=== PATIENT | male | born 1950 | race Caucasian/White ===

== ENCOUNTER 2020-02-17 14:56 | Emergency (ER) | payer OTHER, MEDICARE, SELFPAY ==
[2020-02-17 15:15] VITALS: BP 169/90; PULSE 92; RESP 18; TEMP 36.3; O2SAT 98
[2020-02-17 15:26] VITALS: BP 190/114; PULSE 92; RESP 18; TEMP 36.3; O2SAT 98
--- NOTE | 2020-02-17 15:35 | ED.WOUNDLAC ---
HPI - Wound/Laceration General Chief Complaint: Wound/Laceration Stated Complaint: Left hand finger laceration Time Seen by Provider: 02/17/20 15:35 Source: patient and RN notes reviewed Mode of arrival: ambulatory Limitations: no limitations History of Present Illness HPI narrative: 69-year-old male who presents to [facility] care with complaints of laceration to the left ring finger dorsal DIP aspect along lateral aspect approximately 20 minutes prior to arrival while using a table with moderate amount of bleeding noted on arrival. Patient states that his tetanus is UTD from about 2 years ago. Patient has full mobility of his left ring finger, strong radial pulses to left wrist, nail bed blanches briskly to left ring finger, no complaints of tingling or numbness to his left ring finger or hand. Extremity Location: Left: hand (Left distal ring finger) Place: home Patient tetanus UTD: Yes Context: accidental Associated symptoms: pain Treatments prior to arrival: bandage Related Data Home Medications Medication Instructions Recorded Confirmed lisinopril 20 mg PO DAILY 02/17/20 02/17/20 Allergies Allergy/AdvReac Type Severity Reaction Status Date / Time codeine Allergy Unknown Nausea Verified 02/17/20 15:13 pseudoephedrine Allergy Unknown Unknown Verified 02/17/20 15:13 triprolidine Allergy Unknown Rash Verified 02/17/20 15:13 Review of Systems Review of Systems: Narrative: CONSTITUTIONAL: Denies fever, chills, or sweats. EYES: Denies visual changes, redness, or discharge. ENT: Denies rhinorrhea, congestion, sore throat, or otalgia. CARDIOVASCULAR: Denies chest pain, palpitations, or edema. RESPIRATORY: Denies cough or dyspnea. GASTROINTESTINAL: Denies abdominal pain, nausea, vomiting, or diarrhea. GENITOURINARY: Denies dysuria or hematuria. SKIN: Denies rash or itching. positive for laceration to the left dorsal aspect of left ring finger at lateral DIP area with bleeding moderate upon arrival but slowed after a few minutes. MUSCULOSKELETAL: Denies back pain, joint pain, or myalgia. NEUROLOGIC: Denies headache, numbness, or weakness. PSYCHIATRIC: Denies anxiety or depression. All systems reviewed & are unremarkable except as noted in HPI and below PMFSH Past Medical History Medical History (Updated 02/17/20 @ 16:15 by Shama Moreno NP) Arthritis GERD (gastroesophageal reflux disease) Hypertension Surgical History Surgical History (Updated 02/17/20 @ 16:14 by Shama Moreno NP) History of tonsillectomy Family History Family History Sibling Family history of liver disease Father Family history of emphysema Other Hypertension Social History Social History (Updated 02/17/20 @ 16:14 by Shama Moreno NP) Smoking packs per day: 1 Smoking cigarettes per day: 20.0 Years smoked: 40 Smoking pack-years: 40.00 Smoking status: Current every day smoker Tobacco type: cigarettes Alcohol intake: current Substance use: never Living arrangements: with family Occupation/Education: retired Gender identity (if verbalized by the patient): Male Comments At time of signature, agree with nursing past medical, surgical, social and family history. There is no relevant family history pertinent to the presenting complaint Exam Narrative: Exam Narrative: GENERAL: Well-appearing, well-nourished, and in no acute distress. HEAD: Normocephalic, atraumatic. EYES: PERRLA and EOMI. ENT: Nares clear, no rhinorrhea or epistaxis. Mucous membranes moist. NECK: Supple.no lymphadenopathy CHEST: Clear to auscultation. No respiratory distress.SAO2 98% on room air HEART: Regular rate and rhythm. No murmur heard. Normal peripheral pulses. ABDOMEN: Soft, nontender, nondistended, normal active bowel sounds. EXTREMITIES: Normal range of motion. No edema. SKIN: Warm, dry, no rash.2cm laceration to dorsal aspect of left ring finger at DIP area lateral aspect,
== END 2020-02-17 16:22 | disposition home or self-care (01) ==
PROVIDERS: Emergency Provider Registered Nurse; PCP Family Medicine Adolescent Medicine
DX: S61.215A Laceration without foreign body of left ring finger without damage to nail, initial encounter (principal); W27.0XXA Contact with workbench tool, initial encounter; M19.90 Unspecified osteoarthritis, unspecified site; K21.9 Gastro-esophageal reflux disease without esophagitis; I10 Essential (primary) hypertension; F17.210 Nicotine dependence, cigarettes, uncomplicated
CPT/HCPCS: 12001; 99213; G0463

== ENCOUNTER 2021-02-16 11:37 | Outpatient (CLI) | payer OTHER, SELFPAY ==
[2021-02-16 12:19] LABS: Alanine Aminotransferase 29 U/L (4-50); Albumin Level 4.2 g/dL (3.5-5.1); Alkaline Phosphatase 77 U/L (38-126); Anion Gap 4 mmol/L (8-16); Aspartate Amino Transferase 24 U/L (17-59); Bilirubin,Total 0.3 mg/dL (0.2-1.3); Blood Urea Nitrogen 17 mg/dL (9-20); Calcium 9.1 mg/dL (8.4-10.2); Carbon Dioxide 31 mmol/L (22-30); Chloride 100 mmol/L (98-107); Estimated Glomerular Filt Rate > 60; Glucose 142 mg/dL (65-110); Potassium 4.2 mmol/L (3.4-5.0); Sodium 135 mmol/L (137-145)
[2021-02-16 12:48] LABS: Prostate Specific Antigen 4.6 ng/mL (< OR = 4.0)
== END 2021-02-16 11:38 | disposition home or self-care (01) ==
LOC: ANHLAB 11:43
PROVIDERS: PCP Family Medicine Adolescent Medicine; Visit Provider Family Medicine Adolescent Medicine
DX: Z12.5 Encounter for screening for malignant neoplasm of prostate (principal); I10 Essential (primary) hypertension
CPT/HCPCS: 36415; 80053; 84153; G0103

== ENCOUNTER 2021-02-17 11:17 | Outpatient (CLI) | payer OTHER, SELFPAY ==
[2021-02-17 12:44] LABS: Prostate Specific Antigen 4.3 ng/mL (< OR = 4.0)
[2021-02-22 21:07] LABS: PSA, Total 4.2 ng/mL (<=4.0); Percent Free Prostate Spec Ag 17 % (>25)
== END 2021-02-17 11:18 | disposition home or self-care (01) ==
LOC: ANHLAB 11:25
PROVIDERS: PCP Family Medicine Adolescent Medicine; Visit Provider Family Medicine Adolescent Medicine
DX: R97.20 Elevated prostate specific antigen [PSA] (principal); Z12.5 Encounter for screening for malignant neoplasm of prostate
CPT/HCPCS: 36415; 84153; 84154; G0103

== ENCOUNTER → 2021-03-18 03:19 | Outpatient (CLI) | payer OTHER, SELFPAY ==
[2021-03-18 22:12] LABS: SARS-CoV-2 RNA PCR Negative
== END ==
PROVIDERS: PCP Family Medicine Adolescent Medicine; Visit Provider Internal Medicine Gastroenterology
DX: Z01.812 Encounter for preprocedural laboratory examination (principal); Z20.822 Contact with and (suspected) exposure to COVID-19
CPT/HCPCS: C9803; U0003; U0005

== ENCOUNTER 2021-03-21 02:50 | Day surgery (SDC) | payer OTHER, SELFPAY ==
[2021-03-15 11:18] VITALS: BMI 28.8
--- NOTE | 2021-03-21 08:27 | WPDANESEPPF ---
Anes - Initial Pre Proc Eval Procedure: Operation Date: 03/21/21 10:30 Proposed Procedures p Screening Colonoscopy - Shaheen Laird MD Date/Time: 03/21/21 08:27 Surgeon: Shaheen Laird MD Pre Op Diagnosis: hx of colon polyps Patient Data Age: 70 Gender: M Height: 1.78 m Weight: 91 kg Allergies Allergy/AdvReac Type Severity Reaction Status Date / Time pseudoephedrine Allergy Intermediate Rash Verified 03/21/21 09:18 triprolidine Allergy Unknown Rash Verified 03/21/21 09:18 codeine AdvReac Intermediate Nausea Verified 03/21/21 09:18 Home Medications Medication Instructions Recorded Confirmed Type lisinopril 20 mg PO DAILY 02/17/20 03/15/21 History Adults Multivitamin 1 tab-cap PO DAILY 03/15/21 03/15/21 History xvezvnxnctz-bzl-kvvunssfy-vitC 2 cap PO DAILY 03/15/21 03/15/21 History [Glucosamine Complex-MSM] Patient hx anesthesia problems: none Family hx anesthesia problems: none Results Review: All pre-operative results and documents have been reviewed as part of the pre-operative evaluation. [facility] Past Medical History Medical History (Updated 02/18/20 @ 00:00 by Shadi Serrano) Arthritis GERD (gastroesophageal reflux disease) Hypertension Surgical History Surgical History (Updated 02/17/20 @ 16:14 by Shama Moreno NP) History of tonsillectomy Family History Family History Sibling Family history of liver disease Father Family history of emphysema Other Hypertension Social History Social History (Updated 02/17/20 @ 16:14 by Shama Moreno NP) Smoking packs per day: 0.5 Smoking cigarettes per day: 10.0 Years smoked: 50 Smoking pack-years: 25.00 Smoking status: Current every day smoker Tobacco type: cigarettes Alcohol intake: current Drinks per week: 7 Alcohol use details: BEERS- OCC. WHISKEY Substance use: never Substance use type: does not use Living arrangements: with family Gender identity (if verbalized by the patient): Male Spiritual care concerns: No Anes - Eval Final PreProcedure Day of Procedure 03/21/21 08:27 Patient weight: overweight Heart: regular rate and rhythm Lungs: clear to auscultation and normal air movement Airway: Mallampati scale class II and special considerations poor dentition Neurological: alert and oriented Last oral intake: >/= 8 hours ASA classification: III Emergent: no Anesthetic plan: proceed Anesthesia type and monitoring: general GIVS and standard monitoring Results Review: All pre-operative results and documents have been reviewed as part of the pre-operative evaluation. Informed Consent: The patient's anesthetic plan and its attendant risks and benefits were discussed with the patient/family/POA. Questions were solicited and answers provided to the satisfaction of the patient/family/POA.
[2021-03-21 09:19] VITALS: BP 152/77; PULSE 63; RESP 17; TEMP 35.9; O2SAT 98; BMI 27.5
--- NOTE | 2021-03-21 09:27 | WPDGICN ---
Assessment and Plan Assessment and plan (1) History of colon polyps: Code(s): Z86.010 - Personal history of colonic polyps Status: Acute Assessment and Plan: Patient has a history of colon polyps. They were adenomatous 2010. Plan is for surveillance colonoscopy at present time. GI Consult Note Consult date/time: 03/21/21 09:27 HPI: Ken Puga is a 70 year old male Presents for screening colonoscopy. Patient's current weight appetite bowel movements are normal. He denies abdominal pain. He has had no bleeding. Patient's last colonoscopy 10 years ago revealed an adenomatous colon polyp. Patient presents today for neoplasia screening. Review of Systems Review of Systems: All systems reviewed & are unremarkable except as noted in HPI and below PMFSH Past Medical History Medical History (Updated 03/21/21 @ 09:28 by Shaheen Laird MD) Arthritis GERD (gastroesophageal reflux disease) Hypertension Surgical History Surgical History (Updated 02/17/20 @ 16:14 by Shama Moreno NP) History of tonsillectomy Family History Family History Sibling Family history of liver disease Father Family history of emphysema Other Hypertension Social History Social History (Updated 02/17/20 @ 16:14 by Shama Moreno NP) Smoking packs per day: 0.5 Smoking cigarettes per day: 10.0 Years smoked: 50 Smoking pack-years: 25.00 Smoking status: Current every day smoker Tobacco type: cigarettes Alcohol intake: current Drinks per week: 7 Alcohol use details: BEERS- OCC. WHISKEY Substance use: never Substance use type: does not use Living arrangements: with family Gender identity (if verbalized by the patient): Male Spiritual care concerns: No Meds Home Medications and Allergies Home Medications Medication Instructions Recorded Confirmed Type lisinopril 20 mg PO DAILY 02/17/20 03/21/21 History Adults Multivitamin 1 tab-cap PO DAILY 03/15/21 03/21/21 History zeqxsjkcqeh-bmr-gmfnsuizz-vitC 2 cap PO DAILY 03/15/21 03/21/21 History [Glucosamine Complex-MSM] Allergies Allergy/AdvReac Type Severity Reaction Status Date / Time pseudoephedrine Allergy Intermediate Rash Verified 03/21/21 09:18 triprolidine Allergy Unknown Rash Verified 03/21/21 09:18 codeine AdvReac Intermediate Nausea Verified 03/21/21 09:18 Vital Signs Vital Signs - 24 hr 03/21/21 09:19 Temperature 96.6 F L Pulse Rate 63 Respiratory Rate 17 Blood Pressure 152/77 H Pulse Oximetry 98 Exam Narrative: Physical exam reveals patient to be alert. Vital signs stable. HEENT exam is unremarkable. Patient is anicteric. Lungs are clear to auscultation and percussion. Heart is without murmur or extra sounds. Abdominal exam bowel sounds are present soft nontender with no hepatosplenomegaly. Digital external rectal exam is normal.
[2021-03-21] MEDS: LACTATED RINGERS 1,000 ML 150 ML IV CONT (09:35)
[2021-03-21 10:23] VITALS: BP 100/53; PULSE 59; RESP 10; O2SAT 99
[2021-03-21 10:33] VITALS: BP 118/67; PULSE 58; RESP 22; O2SAT 100
[2021-03-21 10:43] VITALS: BP 122/73; PULSE 58; RESP 25; O2SAT 100
== END 2021-03-21 11:04 | disposition home or self-care (01) ==
PROVIDERS: PCP Family Medicine Adolescent Medicine; Visit Provider Internal Medicine Gastroenterology
PROC: 0DJD8ZZ Inspection of Lower Intestinal Tract, Via Natural or Artificial Opening Endoscopic (ICD-10-PCS; CPT 45378; principal; 2021-03-21 10:30)
DX: Z12.11 Encounter for screening for malignant neoplasm of colon (principal); D12.5 Benign neoplasm of sigmoid colon; D12.3 Benign neoplasm of transverse colon; D12.2 Benign neoplasm of ascending colon; K64.8 Other hemorrhoids; K57.30 Diverticulosis of large intestine without perforation or abscess without bleeding; I10 Essential (primary) hypertension; K21.9 Gastro-esophageal reflux disease without esophagitis; F17.210 Nicotine dependence, cigarettes, uncomplicated
CPT/HCPCS: 45385; 88305; C9803; J2704; J7120; U0003; U0005

== ENCOUNTER 2021-08-29 14:32 | Outpatient (CLI) | payer OTHER, SELFPAY ==
[2021-08-31 19:39] LABS: PSA, Free 0.71 ng/mL; PSA, Total 4.1 ng/mL (<=4.0); Percent Free Prostate Spec Ag 17 % (>25)
== END 2021-08-29 14:33 | disposition home or self-care (01) ==
LOC: ANHLAB 14:34
PROVIDERS: PCP Family Medicine Adolescent Medicine; Visit Provider Family Medicine Adolescent Medicine
DX: R97.20 Elevated prostate specific antigen [PSA] (principal)
CPT/HCPCS: 36415; 84153; 84154

== ENCOUNTER 2022-02-20 07:40 | Outpatient (CLI) | payer OTHER, SELFPAY ==
[2022-02-20 09:19] LABS: Alanine Aminotransferase 28 U/L (6-50); Albumin Level 4.1 g/dL (3.5-5.1); Alkaline Phosphatase 78 U/L (38-126); Anion Gap 7 mmol/L (8-16); Aspartate Amino Transferase 25 U/L (17-59); Bilirubin,Total 0.5 mg/dL (0.2-1.3); Blood Urea Nitrogen 14 mg/dL (9-20); Calcium 8.8 mg/dL (8.4-10.2); Carbon Dioxide 29 mmol/L (22-30); Chloride 104 mmol/L (98-107); Cholesterol 235 mg/dL (0-200); Creatine Kinase 43 U/L (55-170); Estimated Glomerular Filt Rate > 60; Glucose 122 mg/dL (65-110); HDL Direct 34 mg/dL; Potassium 4.4 mmol/L (3.4-5.0); Sodium 140 mmol/L (137-145); Triglycerides 225 mg/dL (<150)
[2022-02-20 09:30] LABS: LDL Cholesterol Direct 139 mg/dL
[2022-02-20 09:47] LABS: Prostate Specific Antigen 4.4 ng/mL (< OR = 4.0)
[2022-02-20 11:01] LABS: Erythrocyte Sedimentation Rate 20 mm/hr (0-20)
== END 2022-02-20 07:41 | disposition home or self-care (01) ==
LOC: ANHLAB 07:42
PROVIDERS: PCP Family Medicine Adolescent Medicine; Visit Provider Family Medicine Adolescent Medicine
DX: E78.2 Mixed hyperlipidemia (principal); I10 Essential (primary) hypertension; R97.20 Elevated prostate specific antigen [PSA]; M79.10 Myalgia, unspecified site
CPT/HCPCS: 36415; 80053; 80061; 82550; 84153; 85652

== ENCOUNTER 2022-04-20 01:34 | Day surgery (SDC) | payer OTHER, SELFPAY ==
[2022-04-10 15:49] VITALS: BMI 28.8
[2022-04-20 07:48] VITALS: BP 132/74; PULSE 64; RESP 17; TEMP 36.1; O2SAT 98
[2022-04-20] MEDS: LACTATED RINGERS 1,000 ML 150 ML IV CONT (07:54)
--- NOTE | 2022-04-20 08:03 | WPDANESEPPF ---
Anes - Initial Pre Proc Eval Procedure: Operation Date: 04/20/22 08:30 Proposed Procedures p Colonoscopy - Shaheen Laird MD Date/Time: 04/20/22 08:03 Surgeon: Shaheen Laird MD Pre Op Diagnosis: hx colon polyps Patient Data Age: 72 Gender: M Height: 1.78 m Weight: 86.9 kg Last Vital Signs Temp 36.1 C L 04/20/22 07:48 Pulse 64 04/20/22 07:48 Resp 17 04/20/22 07:48 BP 132/74 04/20/22 07:48 Pulse Ox 98 04/20/22 07:48 O2 Del Method Room Air 04/20/22 07:48 Allergies Allergy/AdvReac Type Severity Reaction Status Date / Time pseudoephedrine Allergy Intermediate Rash Verified 04/20/22 07:45 triprolidine Allergy Intermediate Rash Verified 04/20/22 07:45 codeine AdvReac Intermediate Nausea Verified 04/20/22 07:45 Home Medications Medication Instructions Recorded Confirmed Type Adults Multivitamin 1 tab-cap PO DAILY 03/15/21 04/20/22 History kynojzrilze-xsp-bacpgxsos-vitC 2 cap PO DAILY 03/15/21 04/20/22 History capsule (Glucosamine Complex-MSM capsule) lisinopril 20 mg tablet 20 mg PO DAILY #90 tabs 02/17/22 04/20/22 Rx atorvastatin 20 mg tablet 20 mg PO DAILY #90 tabs 02/21/22 04/20/22 Rx sodium,potassium,mag sulfates 17.5 See Rx Instructions PO .COMPLEX 04/04/22 04/20/22 Rx gram-3.13 gram-1.6 gram oral soln #354 mL (Suprep Bowel Prep Kit) Patient hx anesthesia problems: none Family hx anesthesia problems: none Results Review: All pre-operative results and documents have been reviewed as part of the pre-operative evaluation. [facility] Past Medical History Medical History Arthritis GERD (gastroesophageal reflux disease) History of colon polyps Hypertension Surgical History Surgical History History of tonsillectomy Family History Family History Sibling Family history of liver disease Father Family history of emphysema Other Hypertension Social History Social History Smoking packs per day: 0.5 Smoking cigarettes per day: 10.0 Years smoked: 50 Smoking pack-years: 25.00 Smoking status: Current every day smoker Tobacco type: cigarettes Alcohol intake: current Drinks per week: 7 Alcohol use details: BEER AND OCC. WHISKEY Substance use: never Substance use type: does not use Living arrangements: with family Occupation/Education: retired Gender identity (if verbalized by the patient): Male Spiritual care concerns: No Anes - Eval Final PreProcedure Day of Procedure 04/20/22 08:03 Patient weight: overweight Heart: regular rate and rhythm Lungs: decreased breath sounds Airway: Mallampati scale class II Neurological: alert and oriented Last oral intake: >/= 8 hours ASA classification: III Emergent: no Anesthetic plan: proceed Anesthesia type and monitoring: general GIVS and standard monitoring Results Review: All pre-operative results and documents have been reviewed as part of the pre-operative evaluation. Informed Consent: The patient's anesthetic plan and its attendant risks and benefits were discussed with the patient/family/POA. Questions were solicited and answers provided to the satisfaction of the patient/family/POA.
--- NOTE | 2022-04-20 08:26 | PM.HPGS ---
History of Present Illness History of Present Illness Consent: Risks, benefits, and alternatives have been discussed and questions answered. Patient agrees to proceed with procedure. Chief complaint: hx colon polyps Narrative: Ken Puga is a 72 year old male Presents for follow-up colonoscopy. Patient was found to have several very large colon polyps 1 year ago. Patient presents today to ensure complete resection and no additional polyps. Patient reports his current weight appetite and bowel movements are normal. Patient denies abdominal pain. He has had no bleeding. Family history is noncontributory. Review of Systems Review of Systems: Review of systems noncontributory. [facility] Past Medical History Medical History (Updated 04/20/22 @ 08:27 by Shaheen Laird MD) Arthritis GERD (gastroesophageal reflux disease) History of colon polyps Hypertension Surgical History Surgical History History of tonsillectomy Family History Family History Sibling Family history of liver disease Father Family history of emphysema Other Hypertension Social History Social History Smoking packs per day: 0.5 Smoking cigarettes per day: 10.0 Years smoked: 50 Smoking pack-years: 25.00 Smoking status: Current every day smoker Tobacco type: cigarettes Alcohol intake: current Drinks per week: 7 Alcohol use details: BEER AND OCC. WHISKEY Substance use: never Substance use type: does not use Living arrangements: with family Occupation/Education: retired Gender identity (if verbalized by the patient): Male Spiritual care concerns: No Meds Home Medications and Allergies Home Medications Medication Instructions Recorded Confirmed Type Adults Multivitamin 1 tab-cap PO DAILY 03/15/21 04/20/22 History riasthuauwr-hsk-vvbnzqsal-vitC 2 cap PO DAILY 03/15/21 04/20/22 History capsule (Glucosamine Complex-MSM capsule) lisinopril 20 mg tablet 20 mg PO DAILY #90 tabs 02/17/22 04/20/22 Rx atorvastatin 20 mg tablet 20 mg PO DAILY #90 tabs 02/21/22 04/20/22 Rx sodium,potassium,mag sulfates 17.5 See Rx Instructions PO .COMPLEX 04/04/22 04/20/22 Rx gram-3.13 gram-1.6 gram oral soln #354 mL (Suprep Bowel Prep Kit) Allergies Allergy/AdvReac Type Severity Reaction Status Date / Time pseudoephedrine Allergy Intermediate Rash Verified 04/20/22 07:45 triprolidine Allergy Intermediate Rash Verified 04/20/22 07:45 codeine AdvReac Intermediate Nausea Verified 04/20/22 07:45 Vital Signs Vital Signs - 24 hr 04/20/22 07:48 Temperature 97.0 F L Pulse Rate 64 Respiratory Rate 17 Blood Pressure 132/74 Pulse Oximetry 98 Oxygen Delivery Room Air Exam Narrative: Physical exam reveals patient to be alert. Vital signs stable. HEENT exam is unremarkable. Patient is anicteric. Lungs are clear to auscultation and percussion. Heart is without murmur or extra sounds. Abdomen bowel sounds are present soft nontender with no organomegaly. Digital external rectal exam is normal. Assessment and Plan Assessment and plan (1) History of colon polyps: Code(s): Z86.010 - Personal history of colonic polyps Status: Acute Assessment and Plan: Patient has a history of large colon polyps resected from the colon 1 year ago. Patient presents today for surveillance colonoscopy. Further recommendations will be given after endoscopy.
[2022-04-20 09:01] VITALS: BP 101/66; PULSE 60; RESP 16; O2SAT 97
[2022-04-20 09:11] VITALS: BP 126/75; PULSE 62; RESP 18; O2SAT 98
[2022-04-20 09:21] VITALS: BP 146/71; PULSE 64; RESP 18; O2SAT 99
== END 2022-04-20 09:33 | disposition home or self-care (01) ==
PROVIDERS: PCP Family Medicine Adolescent Medicine; Visit Provider Internal Medicine Gastroenterology
PROC: 0DJD8ZZ Inspection of Lower Intestinal Tract, Via Natural or Artificial Opening Endoscopic (ICD-10-PCS; CPT 45378; principal; 2022-04-20 08:30)
DX: Z12.11 Encounter for screening for malignant neoplasm of colon (principal); D12.2 Benign neoplasm of ascending colon; D12.4 Benign neoplasm of descending colon; D12.5 Benign neoplasm of sigmoid colon; K57.30 Diverticulosis of large intestine without perforation or abscess without bleeding; K64.8 Other hemorrhoids; I10 Essential (primary) hypertension; F17.210 Nicotine dependence, cigarettes, uncomplicated
CPT/HCPCS: 45385; 88305; J2704; J7120

== ENCOUNTER 2023-02-28 08:12 | Outpatient (CLI) | payer OTHER, SELFPAY ==
[2023-02-28 08:46] LABS: Cholesterol 178 mg/dL (0-200); HDL Direct 40 mg/dL; Triglycerides 270 mg/dL (<150)
[2023-02-28 08:48] LABS: Hemoglobin A1C 8.7 % (<5.7)
[2023-02-28 08:57] LABS: LDL Cholesterol Direct 92 mg/dL
[2023-03-03 19:11] LABS: PSA, Free 0.91 ng/mL; PSA, Total 4.4 ng/mL (<=4.0); Percent Free Prostate Spec Ag 21 % (>25)
== END 2023-02-28 08:13 | disposition home or self-care (01) ==
PROVIDERS: PCP Family Medicine Adolescent Medicine; Visit Provider Family Medicine Adolescent Medicine
DX: R97.20 Elevated prostate specific antigen [PSA] (principal); I10 Essential (primary) hypertension; E78.2 Mixed hyperlipidemia
CPT/HCPCS: 36415; 80061; 83036; 84153; 84154

== ENCOUNTER 2023-05-31 11:09 | Outpatient (CLI) | payer OTHER, SELFPAY ==
[2023-05-31 11:45] LABS: Alanine Aminotransferase 27 U/L (6-50); Albumin Level 4.1 g/dL (3.5-5.1); Alkaline Phosphatase 74 U/L (38-126); Anion Gap 3 mmol/L (8-16); Aspartate Amino Transferase 36 U/L (17-59); Bilirubin,Total 0.6 mg/dL (0.2-1.3); Blood Urea Nitrogen 16 mg/dL (9-20); Calcium 9.3 mg/dL (8.4-10.2); Carbon Dioxide 31 mmol/L (22-30); Chloride 102 mmol/L (98-107); Estimated Glomerular Filt Rate > 60; Glucose 222 mg/dL (65-110); Potassium 3.9 mmol/L (3.4-5.0); Sodium 136 mmol/L (137-145)
[2023-06-01 08:51] LABS: Hemoglobin A1C 7.4 % (<5.7)
== END 2023-05-31 11:10 | disposition home or self-care (01) ==
LOC: ANHLAB 11:13
PROVIDERS: PCP Family Medicine Adolescent Medicine; Visit Provider Family Medicine Adolescent Medicine
DX: E11.9 Type 2 diabetes mellitus without complications (principal); E78.2 Mixed hyperlipidemia; I10 Essential (primary) hypertension
CPT/HCPCS: 36415; 80053; 83036

== ENCOUNTER 2025-01-30 08:21 | Outpatient (CLI) | payer OTHER, SELFPAY ==
--- OUTSIDE RECORDS SUMMARY | 2025-01-30 08:24 | XMS_ITS ---
Author Organization Unknown ENCOUNTERS Encounter Performer Location Date Diagnosis Diagnosis Status Outpatient [facility] [address] [place] [address] [id number] Outpatient [facility] [address] [place] [address] [id number] [place] Outpatient [facility] [address] [place] [address] [phone] [place] Outpatient [facility] [address] [place] [address] [id number] [place] Outpatient [facility] [address] [place] [address] [id number] [place] Outpatient [facility] [address] [place] [address] [id number] [place] Outpatient [facility] [address] [place] [address] [phone] [place] Outpatient [facility] [address] [place] [address] [id number] [place] Outpatient [facility] [address] [place] [address] [phone] Outpatient [facility] [address] [place] [address] [phone] [place] Outpatient [facility] [address] [place] [address] [phone] [place] *Note: Encounters from your own facility or health system may be excluded. Allergies, Adverse Reactions, Alerts Allergen Type Severity Identification Date triprolidine drug allergy 3 20200217 pseudoephedrine drug allergy 3 20200217 codeine drug allergy 3 20200217 Medications Name Date Quantity Days Supplied GPI Number
[2025-01-30 10:21] LABS: Alanine Aminotransferase 20 U/L (6-50); Albumin Level 3.9 g/dL (3.5-5.1); Alkaline Phosphatase 63 U/L (38-126); Anion Gap 5 mmol/L (4-12); Aspartate Amino Transferase 30 U/L (17-59); Bilirubin,Total 0.5 mg/dL (0.2-1.3); Blood Urea Nitrogen 13 mg/dL (9-20); Calcium 9.1 mg/dL (8.4-10.2); Carbon Dioxide 29 mmol/L (22-30); Chloride 103 mmol/L (98-107); Cholesterol 124 mg/dL (0-200); Estimated Glomerular Filt Rate > 60; Glucose 86 mg/dL (65-110); HDL Direct 38 mg/dL; Potassium 4.5 mmol/L (3.4-5.0); Sodium 137 mmol/L (137-145); Total Protein 6.7 g/dL (6.3-8.2); Triglycerides 87 mg/dL (<150)
[2025-01-30 10:23] LABS: Hemoglobin A1C 6.3 % (<5.7)
[2025-01-31 07:09] LABS: PSA, Free 0.68 ng/mL
== END 2025-01-30 08:22 | disposition home or self-care (01) ==
PROVIDERS: PCP Family Medicine Adolescent Medicine; Visit Provider Family Medicine Adolescent Medicine
DX: E11.9 Type 2 diabetes mellitus without complications (principal); I10 Essential (primary) hypertension; E78.2 Mixed hyperlipidemia; R97.20 Elevated prostate specific antigen [PSA]
CPT/HCPCS: 36415; 80053; 80061; 83036; 84153; 84154